=== PATIENT | male | born 1995 | race Hispanic/Latino ===

== ENCOUNTER 2020-01-03 22:38 | Emergency (ER) | payer BC ==
--- NOTE | 2020-01-03 23:11 | ER ---
Nurse's Notes [facility] Name: Julián Retana Age: 24 yrs Sex: Male : 1995 Arrival Date: 01/03/2020 Time: 22:41 Bed 18 Private MD: Diagnosis: Allergic rash. Small abscess left buttock Presentation: 01/02 22:48 Chief complaint: Patient states: "I got home from work and started having a rash all jd3 over. at first I thought it was a heat rash, but it didn't go away and I thought it might be an allergic reaction and I need to get to medical. I also have this pimple or bump on my left butt cheek and I don't know if it is retaliated, but it really is starting to hurt.". Coronavirus screen: At this time, the client does not indicate any symptoms associated with coronavirus-19. Ebola Screen: Patient negative for fever greater than or equal to 101.5 degrees Fahrenheit, and additional compatible Ebola Virus Disease symptoms. Initial Sepsis Screen: Does the patient meet any 2 criteria? No. Patient's initial sepsis screen is negative. Does the patient have a suspected source of infection? No. Patient's initial sepsis screen is negative. Risk Assessment: Do you want to hurt yourself or someone else? Patient reports no desire to harm self or others. Onset of symptoms was January 03, 2020. 22:48 Method Of Arrival: Ambulatory jd3 22:48 Acuity: FRANCISCO 3 jd3 Historical: - Allergies: 22:51 PENICILLINS; jd3 - Home Meds: 22:51 None [Active]; jd3 - PMHx: 22:51 None; jd3 - PSHx: 22:51 jaw; facial reconstruction; jd3 - Immunization history:: Adult Immunizations up to date. - Social history:: Smoking status: Patient denies any tobacco usage or history of. Screenin:26 Abuse screen: Denies threats or abuse. Denies injuries from another. Nutritional rv screening: No deficits noted. Tuberculosis screening: No symptoms or risk factors identified. Fall Risk None identified. Assessment: 23:26 General: Appears comfortable, Behavior is calm, cooperative. Pain: Denies pain. Neuro: rv Level of Consciousness is awake, alert, obeys commands, Oriented to person, place, time, situation. Cardiovascular: Patient's skin is warm and dry. Respiratory: Airway is patent. Derm: Rash noted that is red, on face. Vital Signs: 22:51 BP 133 / 88; Pulse 74; Resp 16 S; Temp 98.2(TE); Pulse Ox 96% on R/A; Weight 68.04 kg jd3 (R); Height 5 ft. 5 in. (165.10 cm) (R); Pain 7/10; 22:51 Body Mass Index 24.96 (68.04 kg, 165.10 cm) jd3 ED Course: 22:41 Patient arrived in ED. cl3 22:42 Benito Zepeda MD is Attending Physician. pkl 22:51 Triage completed. jd3 22:53 Arm band placed on. jd3 23:12 Edmond Ventura, RN is Primary Nurse. rv 23:26 Patient has correct armband on for positive identification. Pulse ox on. NIBP on. rv 23:26 No provider procedures requiring assistance completed. Patient did not have IV access rv during this emergency room visit. Administered Medications: 23:12 Drug: Benadryl 50 mg Route: PO; rv 23:29 Follow up: Response: No adverse reaction rv 23:12 Drug: Bactrim (160 mg-800 mg (DS) 1 tablet Route: PO; rv 23:29 Follow up: Response: No adverse reaction rv 23:17 Drug: Decadron 10 mg Route: IM; Site: right deltoid; rv 23:29 Follow up: Response: No adverse reaction rv Outcome: 23:10 Discharge ordered by . pkl 23:26 Discharged to Law Enforcement rv 23:26 Condition: good 23:26 Discharge instructions given to patient, Instructed on discharge instructions, follow up and referral plans. medication usage, Demonstrated understanding of instructions, follow-up care, medications, Prescriptions given X 1. 23:29 Patient left the ED. rv Signatures: Benito Zepeda MD MD pkl Davies, Jonathon, RN RN jEdmond Hartman, SELENA RN Tim Brandon cl3
--- NOTE | 2020-01-03 23:11 | EDPHYS ---
Physician Documentation [facility] Name: Julián Retana Age: 24 yrs Sex: Male : 1995 Arrival Date: 01/03/2020 Time: 22:41 Bed 18 Private MD: ED Physician Benito Zepeda HPI: 01/02 23:02 This 24 yrs old Male presents to ER via Ambulatory with complaints of Rash. pkl 23:02 The patient's rash thought to be caused by an unknown cause. The rash is located on the pkl body diffusely. The rash can be described as erythematous. Onset: The symptoms/episode began/occurred just prior to arrival. Associated signs and symptoms: Pertinent positives: itching. Historical: - Allergies: 22:51 PENICILLINS; jd3 - Home Meds: 22:51 None [Active]; jd3 - PMHx: 22:51 None; jd3 - PSHx: 22:51 jaw; facial reconstruction; jd3 - Immunization history:: Adult Immunizations up to date. - Social history:: Smoking status: Patient denies any tobacco usage or history of. ROS: 23:02 Eyes: Negative for injury, pain, redness, and discharge, ENT: Negative for injury, pkl pain, and discharge, Neck: Negative for injury, pain, and swelling, Cardiovascular: Negative for chest pain, palpitations, and edema, Respiratory: Negative for shortness of breath, cough, wheezing, and pleuritic chest pain, Abdomen/GI: Negative for abdominal pain, nausea, vomiting, diarrhea, and constipation, Back: Negative for injury and pain, : Negative for injury, bleeding, discharge, and swelling, MS/Extremity: Negative for injury and deformity. 23:02 Skin: Positive for erythema, rash, of the diffusely, small abscess left buttuck. 23:02 Neuro: Negative for altered mental status. Exam: 23:02 Head/Face: Normocephalic, atraumatic. Eyes: Pupils equal round and reactive to light, pkl extra-ocular motions intact. Lids and lashes normal. Conjunctiva and sclera are non-icteric and not injected. Cornea within normal limits. Periorbital areas with no swelling, redness, or edema. ENT: Nares patent. No nasal discharge, no septal abnormalities noted. Tympanic membranes are normal and external auditory canals are clear. Oropharynx with no redness, swelling, or masses, exudates, or evidence of obstruction, uvula midline. Mucous membranes moist. Neck: Trachea midline, no thyromegaly or masses palpated, and no cervical lymphadenopathy. Supple, full range of motion without nuchal rigidity, or vertebral point tenderness. No Meningismus. Chest/axilla: Normal chest wall appearance and motion. Nontender with no deformity. No lesions are appreciated. Cardiovascular: Regular rate and rhythm with a normal S1 and S2. No gallops, murmurs, or rubs. Normal PMI, no JVD. No pulse deficits. Respiratory: Lungs have equal breath sounds bilaterally, clear to auscultation and percussion. No rales, rhonchi or wheezes noted. No increased work of breathing, no retractions or nasal flaring. Abdomen/GI: Soft, non-tender, with normal bowel sounds. No distension or tympany. No guarding or rebound. No evidence of tenderness throughout. Back: No spinal tenderness. No costovertebral tenderness. Full range of motion. 23:02 Skin: rash can be described as erythematous, and is diffusely located, small abscess left buttock . 23:02 Neuro: Orientation: is normal, Mentation: is normal, Cranial nerves: grossly normal, Motor: is normal. Vital Signs: 22:51 BP 133 / 88; Pulse 74; Resp 16 S; Temp 98.2(TE); Pulse Ox 96% on R/A; Weight 68.04 kg jd3 (R); Height 5 ft. 5 in. (165.10 cm) (R); Pain 7/10; 22:51 Body Mass Index 24.96 (68.04 kg, 165.10 cm) jd3 MDM: 22:42 Patient medically screened. pkl 23:02 Data reviewed: vital signs, nurses notes. ED course: Patient does not want abscess left pkl buttock drained at this time. Want to try antibiotic first. Administered Medications: 23:12 Drug: Benadryl 50 mg Route: PO; rv 23:29 Follow up: Response: No adverse reaction rv 23:12 Drug: Bactrim (160 mg-800 mg (DS) 1 tablet Route: PO; rv 23:29 Follow up: Response: No adverse reaction rv 23:17 Drug: Decadron 10 mg Route: IM; Site: right deltoid; rv 23:29 Follow up: Response: No adverse reaction rv Disposition: 01/03/20 23:10 Discharged to Home. Impression: Allergic rash. Small abscess left buttock. - Condition is Stable. - Prescriptions for Bactrim DS 800- 160 mg Oral Tablet - take 1 tablet by ORAL route every 12 hours for 7 days; 14 tablet. - Medication Reconciliation Form, Thank You Letter, Antibiotic Education, Prescription Opioid Use form. - Follow up: Private Physician; When: 2 - 3 days; Reason: Re-evaluation by your physician. - Problem is new. - Symptoms are unchanged. Signatures: Benito Zepeda MD MD pkl Alfred Muhammad RN RN jd3 Edmond Ventura RN RN rv Corrections: (The following items were deleted from the chart) 23:29 23:10 01/03/2020 23:10 Discharged to Home. Impression: Allergic rash. Small abscess rv left buttock. Condition is Stable. Forms are Medication Reconciliation Form, Thank You Letter, Antibiotic Education, Prescription Opioid Use. Follow up: Private Physician; When: 2 - 3 days; Reason: Re-evaluation by your physician. Problem is new. Symptoms are unchanged. pkl
[2020-01-03] MEDS ORDERED: DIPHENHYDRAMINE 25 MG TAB/CAP ONE ×2 (23:18→23:21)
[2020-01-03] MEDS ORDERED: SMZ./TMP. 800/160 MG TABLET ONE (23:18)
[2020-01-03] MEDS ORDERED: dexAMETHasone 10 MG/ML VIAL ONE (23:25)
[2020-01-03 23:35] VITALS: BP 133/88; TEMP 98.2; O2SAT 96
== END 2020-01-03 23:29 | disposition home or self-care (01) ==
LOC: ER 22:38 → EDSEX 22:38 → ER 23:29
DX: T78.40XA Allergy, unspecified, initial encounter (principal); R21 Rash and other nonspecific skin eruption; L02.31 Cutaneous abscess of buttock; Z88.0 Allergy status to penicillin
CPT/HCPCS: 96372; 99283; J1100